=== PATIENT | female | born 1955 | race Caucasian/White ===

== ENCOUNTER 2016-11-10 10:28 | Outpatient (CLI) | payer BC ==
[~2016-11-10] VITALS: Ht 152.4 cm; Wt 89.5 kg
--- NOTE | ~2016-11-10 | HEMODYNAMI ---
PATIENT:ABDIEL MELGOZA MEDICAL RECORD: [id number] : 53 LOCATION:[facility] ADMISSION DATE: 11/10/16 Generatedon:11/10/201614:07 Patient name: ABDIEL MELGOZA Patient #: [id number] SSN: [id number] : 1955 Date of study: 11/10/2016 Page: Of Hemodynamic Procedure Report Patient Data Patient Demographics Procedure consent was obtained First Name: ABDIEL Gender: Female Last Name: ABAD : 1955 Patient #: [id number] Age: 61 year(s) Race: Unknown SSN: [id number] Additional ID: [id number] Contact details Address: [address] [place] [address] State: [place] City: [place] Zip code: [address] Past Medical History Allergies: No known allergies Admission Admission Data Admission Date: 11/10/2016 Admission Time: 10:28 Arrival Date: 11/10/2016 Arrival Time: 0:00 Admit Source: Other Insurance Payor: Private health insurance Height (in.): 61 BSA: 1.9 (m2) Height (cm.): 154.94 BMI: 38.17 (kg/m2) Weight (lbs.): 202 Weight (kg.): 91.63 Procedure Procedure Types Cath Procedure Diagnostic Procedure [facility] w/Coronaries Procedure Description Procedure Date Procedure Date: 11/10/2016 Procedure Start Time: 13:48 Procedure End Time: 14:03 Procedure Staff Name Function Spike Bhat MD Performing Physician Eva Tejeda RN Nurse Kelly Vargas RT Monitor Linda Moses RT Scrub Cy Padgett RT Drier Unloader Procedure Data Cath Procedure Fluoroscopy Diagnostic fluoroscopy Total fluoroscopy Time: 4.8 time: 4.8 min min Diagnostic fluoroscopy Total fluoroscopy dose: 274 dose: 274 mGy mGy Contrast Material Contrast Material Type Amount (ml) Isovue 300 47 Entry Location Entry Primary Successful Side Size Upsize Upsize Entry Closure Bolaños ccessful Closure Location (Fr) 1 (Fr) 2 (Fr) Remarks Device Remarks Radial Right 6 Fr Mechanical TR band artery Short Compression Estimated blood loss: 10 ml Diagnostic catheters Device Type Used For End Catheter Placement Terumo 5Fr [place] 110cm Left Coronary catheter Angiography Cordis Infinity 5Fr Aortic Root Pigtail catheter Angiography Procedure Complications No complications Procedure Medications Medication Administration Route Dosage Oxygen NC 2 l/min Benadryl I.V. 50 mg Lidocaine 2% added to field 20 Heparin Flush Bag added to field 2 bags (1000units/500ml NS) 0.9% NaCl I.V. 100 ml/hr Versed I.V. 1 mg Fentanyl I.V. 50 mcg Versed I.V. 1 mg Fentanyl I.V. 50 mcg Radial Cocktail I.A. 1 syringe (Verapomil 2mg/Nitro 400mcg/Heparin 1500units) Versed I.V. 1 mg Fentanyl I.V. 50 mcg Hemodynamics Rest BSA: 1.9 (m2) O2 Consumption: Estimated: 178.61 (ml/min) O2 Consumption indexed: Estimated:94.01 (ml/min/m) Heart Rate: 69 (bpm) Pressure Samples Time Site Value (mmHg) Purpose Heart Use Rate(bpm) 13:52 LV 0/-2,-1 Snapshot 85 Snapshots Pre Cath Intra NCS Post Cath Vital Signs Time Heart Resp SPO2 NIBP (mmHg) Rhythm Pain Sedation Rate (ipm) (%) Status Level (bpm) 13:39:02 73 22 94 145/72(129) NSR 0 (11) 10(A) , No pain 13:43:31 75 16 95 130/73(101) NSR 0 (11) 10(A) , No pain 13:47:53 75 17 94 119/68(106) NSR 0 (11) 10(A) , No pain 13:52:19 84 16 95 96/53(79) NSR 0 (11) 9(A) , No pain 13:56:35 85 16 94 109/57(94) NSR 0 (11) 9(A) , No pain 14:00:43 82 17 96 108/69(95) NSR 0 (11) 10(A) , No pain Medications Time Medication Route Dose Verified Delivered Reason Notes Effectiveness by by 13:42:26 Oxygen NC 2 l/min Spike Velasquez used for Home Tejeda metal bonder 13:42:33 Benadryl I.V. 50 mg Spike Buffie used for Home Tejeda RN procedure 13:42:42 Lidocaine 2% added 20ml Spike Spike for local to vial Home Bhat MD anesthetic field 13:42:50 Heparin Flush added 2 bags Spike Spike used for Bag to Home Bhat MD procedure (1000units/500ml field NS) 13:42:59 0.9% NaCl I.V. 100 Spike Buffie Per ml/hr Home Tejeda RN physician 13:46:47 Versed I.V. 1 mg Spike Buffie for sedation Home Tejeda RN 13:46:52 Fentanyl I.V. 50 mcg Spike Buffie for sedation Home Tejeda RN 13:49:13 Versed I.V. 1 mg Spike Buffie for sedation Home Tejeda RN 13:49:17 Fentanyl I.V. 50 mcg Spike Buffie for sedation Home Tejeda RN 13:51:05 Radial Cocktail I.A. 1 Spike Spike for (Verapomil syringe Home Bhat MD vasodilation 2mg/Nitro 400mcg/Heparin 1500units) 13:53:57 Versed I.V. 1 mg Spike Spike for sedation Home Bhat MD 13:54:00 Fentanyl I.V. 50 mcg Spike Spike for sedation Home Bhat MD Procedure Log Time Note 13:10:18 Cy Padgett RT(R) sent for patient. Start room use. 13:27:19 Time tracking: Regular hours 13:27:23 Plan of Care:Hemodynamics will remain stable., Cardiac rhythm will remain stable., Comfort level will be maintained., Respiratory function will remain adequate., Patient/ family verbilizes understanding of procedure., Procedure tolerated without complication., Recovers from procedure without complications.. 13:27:37 Patient received from Outpatients to [facility] 2 Alert and oriented. Tansferred to table in Supine position. 13:27:38 Warm blankets applied, and sukumar hugger turned on for patient comfort. 13:27:38 Correct patient and procedure confirmed by team. 13:27:40 Signed procedure consent form obtained from patient. 13:27:43 ECG and BP/O2 sat monitors applied to patient. 13:37:41 Vital chart was started 13:37:42 Baseline sample Acquired. 13:37:51 Rhythm: sinus rhythm 13:37:53 Full Disclosure recording started 13:38:12 H&P Date Dictated: 11/10/2016 Within 30 days and on chart., H&P Addendum completed by physician on day of procedure. (MUST COMPLETE FOR ALL OUTPATIENTS). 13:38:15 Pre-procedure instructions explained to patient. 13:38:17 Family in waiting room. 13:38:20 Patient NPO since Midnight. 13:38:30 Patient allergic to No known allergies 13:38:34 Is the patient allergic to Iodine/contrast media? No. 13:38:36 Was the patient premedicated? No 13:38:43 Is patient on blood thinner?No 13:38:45 Patient diabetic? Yes. 13:38:46 If diabetic: On Metformin? Yes 13:39:09 If on Metformin: Last Dose? 11/09/2016 13:39:13 HCG/Urine : completed and on chart 13:39:26 Snore? Yes 13:39:28 Sleep apnea? No 13:39:30 Deviated septum? No 13:39:31 Opens mouth fully? Yes 13:39:39 Dentures? No ? 13:39:55 IV patent on arrival in left hand with 0.9% NaCl at [facility]. 13:40:26 Lab results completed and on chart. 13:40:31 Right Radial & Right Groin area was prepped with chlora-prep and draped in sterile fashion 13:40:32 Alarms reviewed by RKole Heck 13:40:35 Physician paged 13:42:26 Oxygen 2 l/min NC was given by Eva Tejeda RN; used for procedure; 13:42:33 Benadryl 50 mg I.V. was given by Eva Tejeda RN; used for procedure; 13:42:42 Lidocaine 2% 20ml vial added to field was given by Spike Bhat MD; for local anesthetic; 13:42:50 Heparin Flush Bag (1000units/500ml NS) 2 bags added to field was given by Spike Bhat MD; used for procedure; 13:42:59 0.9% NaCl 100 ml/hr I.V. was given by Eva Tejeda RN; Per physician; 13:44:03 Use device set Radial Dx 13:45:03 Acist Syringe opened to sterile field. 13:45:04 Cardinal Cath Pack opened to sterile field. 13:45:05 Bag Decanter opened to sterile field. 13:45:06 Terumo 6Fr Slender Glidesheath opened to sterile field. 13:45:07 St Miguel 260cm J .035 wire opened to sterile field. 13:45:08 Acist Hand Control opened to sterile field. 13:45:09 Acist Manifold opened to sterile field. 13:45:11 IV Extension Set opened to sterile field. 13:45:14 Cook 21G 4cm Radial Needle opened to sterile field. 13:45:28 Physician arrived 13:45:28 --------ALL STOP TIME OUT------ 13:45:29 Final Timeout: patient, procedure, and site verified with staff and physician. All members of the team are in agreement. 13:45:33 Right Radial & Right Groin site verified by team. 13:45:39 Physical assessment completed. ASA score P 2 - A patient with mild systemic disease as per Spike Bhat MD. 13:45:43 Sedation plan: IV Moderate Sedation Versed, Fentanyl 13:46:47 Versed 1 mg I.V. was given by Eva Tejeda RN; for sedation; 13:46:52 Fentanyl 50 mcg I.V. was given by Eva Tejeda RN; for sedation; 13:48:15 Zero performed for pressure channel P1 13:48:28 Procedure started. 13:48:43 Local anesthetic to right radial artery with Lidocaine 2% by Spike Bhat MD.INITIAL ACCESS ONLY 13:49:13 Versed 1 mg I.V. was given by Eva Tejeda RN; for sedation; 13:49:17 Fentanyl 50 mcg I.V. was given by Eva Tejeda RN; for sedation; 13:49:42 A 6 Fr Short sheath was inserted into the Right Radial artery 13:51:02 J wire advanced. 13:51:05 Radial Cocktail (Verapomil 2mg/Nitro 400mcg/Heparin 1500units) 1 syringe I.A. was given by Spike Bhat MD; for vasodilation; 13:51:22 A Terumo 5Fr [place] 110cm catheter was advanced over the wire and used for Left Coronary Angiography. 13:53:57 Versed 1 mg I.V. was given by Spike Bhat MD; for sedation; 13:54:00 Fentanyl 50 mcg I.V. was given by Spike Bhat MD; for sedation; 13:57:01 Catheter removed. 13:57:16 A Cordis Infinity 5Fr Pigtail catheter was advanced over the wire and used for Aortic Root Angiography. 14:00:35 Terumo TR Band Standard opened to sterile field. 14:00:40 Catheter removed. 14:01:24 Sheath removed intact; hemostasis achieved with Mechanical Compression to the Right Radial artery. 14:01:28 Procedure ended.(Physican Out) 14:01:39 Fluoroscopy time 04.80 minutes. 14:01:45 Fluoroscopy dose: 274 mGy 14:01:45 Flurop Dose total: 274 14:01:50 Contrast amount:Isovue 300 47ml. 14:01:52 Sharps counted by scrub and verified by R.N. 14:02:02 TR band inflated with 10cc of air. 14:02:04 Insertion/operative site no bleeding no hematoma. 14:02:32 Post Procedure Pulses reassessed and unchanged 14:02:40 Post-procedure physical assessment completed. ASA score P 2 - A patient with mild systemic disease as per Spike Bhat MD. 14:02:44 Post procedure rhythm: unchanged. 14:02:47 Estimated blood loss: 10 ml 14:02:48 Post procedure instruction explained to patient.Patient verbalizes understanding. 14:02:59 Procedure and supply charges have been captured, reviewed, submitted and are correct. 14:03:21 Procedure Complication : No complications 14:03:24 Vital chart was stopped 14:03:26 See physician's report for complete and final results. 14:03:34 Report given to Post Procedure Room. 14:03:38 Patient transfered to Post Procedure Room with Stretcher. 14:03:44 Procedure ended. 14:03:44 Full Disclosure recording stopped 14:03:52 End room use (Document Last) 14:06:13 Admit Source: Other 14:06:16 Arrival Date: 11/10/2016 12:00:00 AM 14:06:18 Insurance Payor : Private health insurance 14:06:30 Patient Height : 154.94 cm 14:06:40 Patient Weight : 91.63 kg Device Usage Item Name Manufacture Quantity Catalog Hospital Part Current Minimal Lot# / Number Charge Number Stock Stock Serial# Code Acist Acist 1 08541 [id number] [id number] [id number] 20 Syringe [employer] Cardinal Cardinal 1 [id number] 336304 05252 163505 5 Cath Pack Health Bag Microtek 1 2002S 849633 83372 [id number] 5 Decanter [employer] Terumo 6Fr Terumo 1 [id number] 837282 721849 615274 [address] [facility] Miguel 1 026258 757471 353964 471468 30 260cm J .035 wire Acist Hand Acist 1 61199 720960 976539 479152 5 Control [employer] Inc Acist Acist 1 82436 578807 784045 718766 5 Manifold Medical [employer] Inc IV Hospira 1 03243-70 923292 73801 417316 5 Extension Set Cook 21G Cook Solidmation 1 [id number] 329341 269106 5 4cm Radial Needle Terumo 5Fr Terumo 1 40-2803 543009 454869 128734 5 [place] 110cm catheter Cordis Cardinal 1 [id number] 479191 384284 112323 5 Gamador 5Fr Pigtail catheter Terumo TR Terumo 1 [id number] 409545 119846 777621 40 Band Standard Signature Audit [place] Stage Time Signature Unsigned Intra-Procedure 11/10/2016 Kelly Vargas 2:07:33 PM RT(R) Signatures Monitor : Kelly Vargas Signature : RT Date : Time : [facility] [address] [place] [address]
[2016-11-10] MEDS ORDERED: GLUCOPHAGE500 MG PO (10:52)
[2016-11-10] MEDS ORDERED: ULTRAM50 MG PO (10:53)
[2016-11-10] MEDS ORDERED: EFFEXOR75 MG PO (10:53)
[2016-11-10] MEDS ORDERED: GABAPENTIN100 MG PO ×2 (10:54→10:55)
[2016-11-10] MEDS ORDERED: BAYER CHEWABLE81 MG PO (10:54)
[2016-11-10] MEDS ORDERED: COREG12.5 MG PO (10:54)
[2016-11-10] MEDS ORDERED: K-TAB10 MEQ PO (10:55)
[2016-11-10] MEDS ORDERED: ALTACE10 MG PO (10:55)
[2016-11-10] MEDS ORDERED: FUROSEMIDE20 MG PO (10:56)
[2016-11-10] MEDS ORDERED: NOVOLOG100 U/M1 SC (10:57)
[2016-11-10] MEDS ORDERED: LEVEMIR100 U/M1 SC (10:57)
[2016-11-10 11:07] LABS: BASOPHILS 0.7 % (0.0-2.0); EOSINOPHILS 1.5 % (0-7); HEMATOCRIT 37.5 % (36.0-48.0); HEMOGLOBIN 12.2 g/dL (12-16); LYMPHOCYTES 47.3 % (15-50); MCH 27.4 pg (26.0-34.0); MCHC 32.5 g/dL (31.0-37.0); MCV 84.3 fL (80.0-100.0); MEAN PLATELET VOLUME 9.9 fL (7.4-10.4); MONOCYTES 7.1 % (2-11); NEUTROPHILS 43.4 % (40-80); PLATELET COUNT 299 10x3/uL (130-400); RBC 4.45 10x6/uL (4.00-5.40); RDW 14.2 % (11.5-14.5); WBC 5.4 10x3/uL (4.8-10.8)
[2016-11-10 11:08] VITALS: BP 130/67; Ht 152.4 cm; Wt 89.5 kg
[2016-11-10 11:19] LABS: CALC OSMOLALITY 280 mosm/kg (275-300); CALCIUM 9.6 mg/dL (8.5-10.1); CARBON DIOXIDE 32.4 mmol/L (21.0-32.0); CHLORIDE - SERUM 102 mmol/L (98-107); CREATININE - SERUM 0.7 mg/dL (0.6-1.3); GLUCOSE 137 mg/dL (74-106); POTASSIUM - SERUM 4.3 mmol/L (3.5-5.1); SODIUM 140 mmol/L (136-145); UREA NITROGEN 13 mg/dL (7-18); eGFR NON AFRICAN AMERICAN 90 mL/min (90-120)
--- NOTE | 2016-11-10 14:29 | NUR ---
VSS WITH CHEST PAIN DENIED TR BAND TO R/WRIST CDI NO BLEEDING NO HEMATOMA NOTED. INSTRUCTED PATIENT TO KEEP R/ARM STRAIGHT NO BENDING OR FLEXING OF WRIST
--- NOTE | 2016-11-10 15:22 | NUR ---
TR BAND R/WRIST CDI NO BLEEDING NO HEMATOMA NOTED CHEST PAIN DENIED WITH VSS FAMILY AT SIDE
--- NOTE | 2016-11-10 15:59 | NUR ---
PIV REMOVED WITH DRESSING APPLIED CHEST PAIN IS DENIED. 4 CC AIR REMOVED FROM TR BAND WITH NO BLEEDING AT SITE. PATIENT REPOSITIONED TO SITTING UP ON BEDSIDE WITH FAMILY PRESENT
--- NOTE | 2016-11-10 16:25 | NUR ---
TR BAND REMOVED AND TEGADERM APPLIED. D/C INSTRUCTIONS DISCUSSED WITH PATIENT AND FAMILY AT BEDSIDE. WHEELED DOWN VIA WHEELCHAIR BY CATH TEAM.
--- NOTE | 2016-11-30 15:45 | OP ---
PATIENT NAME: ABDIEL MELGOZA MEDICAL RECORD: [id number] :53 LOCATION:D.CAT ADMISSION DATE: SURGEON: JANKI YANG M.D. DATE OF OPERATION: 11/10/2016 REFERRING PHYSICIAN: Dr. Braydon Nunez. PROCEDURES PERFORMED: 1. Selective coronary angiography. 2. Aortic root injection. INDICATION: A 61-year-old woman presents with symptoms of worsening angina. EQUIPMENT USED: A 5-Lith[place]ian [place] catheter and pigtail catheter. TECHNIQUE: A 6-Lithuanian sheath was inserted in retrograde fashion in the right radial artery. Next, selective coronary angiography was performed in standard 5-[place]ian [place] catheter. Left heart catheterization was performed using [place] catheter as well. CORONARY ANATOMY: 1. Left main: Left main trunk is moderate in caliber. It gives rise to the LAD and circumflex. There is no obstruction. 2. LAD: This is a small to moderate caliber vessel, which terminates proximal to the apex. It has mild irregularities throughout its course, but nothing worse than 30%. 3. Circumflex: This vessel is small in caliber. It provides a high lateral branch, proximal segment. The circumflex and lateral branch are smooth-walled and vessels and angiographically normal. 4. Right coronary artery: This vessel is quite large and dominant. The PDA and posterolateral branch encompass the apex. This vessel is smooth-walled and angiographically normal. 5. Left ventricle: Left ventricle could not be crossed into from the aorta. 6. Ascending aorta: The ascending aorta appears to be of normal caliber. I ____ to the aortic valve. I do not see any insufficiency. IMPRESSION: 1. Mild coronary artery disease. RECOMMENDATIONS: I will likely check an echocardiogram to make sure ejection fraction is normal and to rule out aortic stenosis. At this point, her coronary arteries appear clear. TRANSINT:[id number] Voice Confirmation ID: [id number] DOCUMENT ID: [id number] JANKI YANG M.D. at 1545 CC: [id number] DICTATION DATE: 11/10/16 1405 THIRD HAND: 11/10/16 1423 DEP CLI 11/10/16 [place] [address]
== END 2016-11-10 16:26 | disposition home or self-care (01) ==
LOC: D.CATH 10:28
PROVIDERS: Internal Medicine Cardiovascular Disease
DX: I25.119 Atherosclerotic heart disease of native coronary artery with unspecified angina pectoris (principal)